=== PATIENT | female | born 1995 | race Caucasian/White ===

== ENCOUNTER 2022-09-18 12:29 | Emergency (ER) | payer OTHER ==
[~2022-09-18] VITALS: Ht 157.5 cm; Wt 70.3 kg
[2022-09-18] MEDS ORDERED: FAMOTIDINE 20MG VIAL IV ONE ×2 (13:00→17:13)
[2022-09-18] MEDS ORDERED: 0.9%NACL 1000ML 1,000 ML IV ONE (13:30)
[2022-09-18] MEDS ORDERED: ONDANSETRON 4MG INJ IVP ONE (13:30)
[2022-09-18 13:52] LABS: BASOPHILS % (AUTO) 0.5 % (0.0-5.0); EOSINOPHILS % (AUTO) 4.6 % (0.0-8.0); HEMATOCRIT 40.7 % (36-48); LYMPHOCYTES % (AUTO) 20.8 % (21.0-51.0); MEAN CORPUSCULAR HGB CONC 32.9 g/dL (32.0-36.0); MEAN CORPUSCULAR VOLUME 82.1 fL (79-99); MONOCYTES % (AUTO) 6.8 % (3.0-13.0); NEUTROPHILS % (AUTO) 67.1 % (40.0-77.0); PLATELET COUNT (AUTO) 286 K/uL (130-400); RED BLOOD CELL COUNT(AUTO) 4.96 MIL/uL (4.00-5.50); RED CELL DISTRIBUTION WIDTH 13.3 % (11.0-15.5); WHITE BLOOD COUNT (AUTO) 8.5 K/uL (4.8-10.8)
[2022-09-18 14:04] LABS: ALANINE AMINOTRANSFERASE 23 U/L (12-78); ALBUMIN 3.4 g/dL (3.5-5.0); ASPARTATE AMINOTRANSFERASE 15 U/L (10-37); CARBON DIOXIDE 30 mmol/L (21-32); CHLORIDE 106 mmol/L (101-111); CREATININE 0.6 mg/dL (0.5-1.5); GLOMERULAR FILTR. RATE CALC 125 mL/min (>90); GLUCOSE,RANDOM 105 mg/dL (70-105); POTASSIUM 3.9 mmol/L (3.5-5.1); SODIUM SERUM 141 mmol/L (136-145); TOTAL PROTEIN, SERUM 7.1 g/dL (6.0-8.3); UREA NITROGEN, BLOOD 9 mg/dL (7-18)
[2022-09-18 14:14] LABS: LIPASE < 50 U/L (114-286)
[2022-09-18 17:14] LABS: APPEARANCE,URINE CLOUDY (CLEAR); BILIRUBIN,URINE NEGATIVE (NEGATIVE); COLOR,URINE LIGHT-ORANGE (YELLOW); GLUCOSE, URINE (UA) NEGATIVE (NEGATIVE); KETONES,URINE NEGATIVE (NEGATIVE); LEUKOCYTE ESTERASE ,URINE 250 Leu/uL (NEGATIVE); NITRATE,URINE NEGATIVE (NEGATIVE); OCCULT BLOOD,URINE LARGE (NEGATIVE); PROTEIN,URINE 20 mg/dL (NEGATIVE); UROBILINOGEN,URINE 0.2 mg/dL (0.2-1.0)
[2022-09-18 17:18] LABS: BACTERIA,URINE FEW /HPF (None Seen); HCG,QUALITATIVE URINE NEGATIVE (NEGATIVE); MUCUS,URINE RARE LPF (None Seen); OTHER CASTS, URINE 6 /LPF (None Seen); SQUAMOUS EPITHELIAL CELL,UR MOD /HPF (0-2); WBC,URINE 51-100 /HPF (0-1)
[2022-09-18] MEDS ORDERED: CEFD300C3 PO (17:20)
[2022-09-18 18:00] VITALS: BP 128/70
== END 2022-09-18 18:06 | disposition home or self-care (01) ==
LOC: EDH 12:29
DX: N39.0 Urinary tract infection, site not specified (principal); Z88.8 Allergy status to other drugs, medicaments and biological substances
CPT/HCPCS: 99284; 96374; 96361; 96375; 80053; 83690; 85025; 87077; 87088; 87186; 81001; 81025; 36415; J3490; J7030; J2405